=== PATIENT | female | born 1970 | race Caucasian/White ===

== ENCOUNTER 2019-07-12 13:22 | Emergency (ER) | payer BC ==
[~2019-07-12] VITALS: Ht 157.5 cm; Wt 56.2 kg
--- NOTE | 2019-07-12 13:29 | NUR ---
"L SIDED RIB AREA PAIN, SOB WORST SINCE YESTERDAY" PT AAOX4, -SOB, NAD NOTED, PENDING MD MENARD
[2019-07-12 14:22] LABS: BASOPHILS # (AUTO) 0.1 /CMM (0.0-0.2); BASOPHILS % (AUTO) 1.3 % (0.0-2.0); HEMATOCRIT 38 % (33-45); HEMOGLOBIN 12.7 g/dL (11.5-14.8); LYMPHOCYTES # (AUTO) 2.1 /CMM (0.8-4.8); LYMPHOCYTES % (AUTO) 27.4 % (20.0-44.0); MEAN CORPUSCULAR HGB CONC 34 g/dl (31.0-36.0); MEAN CORPUSCULAR VOLUME 104 fL (82-100); MONOCYTES # (AUTO) 0.7 /CMM (0.1-1.30); MONOCYTES % (AUTO) 9.4 % (2.0-12.0); NEUTROPHILS # (AUTO) 4.6 /CMM (1.8-8.9); NEUTROPHILS % (AUTO) 60.9 % (43.0-81.0); PLATELET COUNT (AUTO) 357 /CMM (150-450); RED BLOOD CELL COUNT(AUTO) 3.64 MIL/uL (4.0-5.2); WHITE BLOOD COUNT (AUTO) 7.6 K/uL (4.3-11.0)
[2019-07-12 14:59] LABS: CALCIUM, SERUM 8.9 mg/dL (8.5-10.1); CARBON DIOXIDE 25 mmol/L (21-32); CHLORIDE 104 mmol/L (98-107); CREATININE 0.5 mg/dL (0.6-1.3); GLUCOSE 97 mg/dL (74-106); POTASSIUM 4.1 mmol/L (3.5-5.1); SODIUM SERUM 138 mmol/L (136-145); UREA NITROGEN, BLOOD 7 mg/dL (7-18)
[2019-07-12 15:12] LABS: B-TYPE NATRIURETIC PEPTIDE 129 PG/ML (0-125); LIPASE 195 U/L (73-393)
[2019-07-12 15:50] VITALS: BP 125/85
[2019-07-12 16:04] LABS: D-DIMER 0.48 mg/L(FEU (0.17-0.50)
--- NOTE | 2019-07-12 16:47 | NUR ---
Patient discharged to home in stable condition. Written and verbal after care instructions given. Patient verbalizes understanding of instruction. IV removed. Catheter intact and site benign. Pressure and 4x4 applied to site. No bleeding noted.
== END 2019-07-12 16:53 | disposition home or self-care (01) ==
LOC: ER 13:22
DX: S22.32XA Fracture of one rib, left side, initial encounter for closed fracture (principal); R00.1 Bradycardia, unspecified; Z88.5 Allergy status to narcotic agent; X58.XXXA Exposure to other specified factors, initial encounter; Y93.89 Activity, other specified; Y92.89 Other specified places as the place of occurrence of the external cause; Y99.8 Other external cause status
CPT/HCPCS: 36415; 71100-TC; 80048-TC; 83690-TC; 83880; 84484-TC; 84702-TC; 85025-TC; 85378-TC; 85730-TC

== ENCOUNTER 2020-12-03 09:23 | Emergency (ER) | payer BC ==
[~2020-12-03] VITALS: Ht 157.5 cm; Wt 56.7 kg
[2020-12-03 09:37] VITALS: BP 142/100
[2020-12-03] MEDS ORDERED: TDAP [DIPH/PERTUSSIS/TET] 0.5 ML VIAL IM ONE ×2 (09:58→10:00)
== END 2020-12-03 10:15 | disposition home or self-care (01) ==
LOC: ER 09:28
DX: T20.26XA Burn of second degree of forehead and cheek, initial encounter (principal); Z88.5 Allergy status to narcotic agent; Z88.6 Allergy status to analgesic agent; X19.XXXA Contact with other heat and hot substances, initial encounter; Y93.G3 Activity, cooking and baking; Y92.89 Other specified places as the place of occurrence of the external cause; Y99.8 Other external cause status
CPT/HCPCS: 90715